=== PATIENT | female | born 1990 | race Caucasian/White ===

== ENCOUNTER 2021-11-17 19:09 | Emergency (ER) | payer OTHER ==
[2021-11-17 19:42] VITALS: BP 108/69; PULSE 106; TEMP 97.9; BMI 23.4
[2021-11-17 21:55] LABS: BASO % 1.2 % (0-2.0); EOS % 2.8 % (0-4.5); HEMATOCRIT 39.4 % (32.4-45.2); HEMOGLOBIN 12.6 GM/dL (10.7-15.3); LYMPH % 34.6 % (8-40); MCH 28.6 pg (25.7-33.7); MEAN CELL VOLUME 89.2 fl (80-96); MEAN PLT VOLUME 9.7 fl (7.5-11.1); MONO % 9.2 % (3.8-10.2); NEUT % 52.2 % (42.8-82.8); PH,URINE 6.5 (5.0-8.0); PLATELET COUNT 292 10^3/uL (134-434); RBC 4.42 M/mm3 (3.60-5.2); RDW 12.9 % (11.6-15.6); URINE APPEARANCE Error; URINE BILIRUBIN NEGATIVE (NEGATIVE); URINE COLOR YELLOW; URINE GLUCOSE (UA) NEGATIVE (NEGATIVE); URINE KETONE NEGATIVE (NEGATIVE); URINE LEUK ESTERASE NEGATIVE (NEGATIVE); URINE NITRITE NEGATIVE (NEGATIVE); URINE PROTEIN NEGATIVE (NEGATIVE); URINE UROBILINOGEN 0.2 mg/dL (0.2-1.0); WHITE BLOOD COUNT 7.6 K/mm3 (4.0-10.0)
[2021-11-17 22:03] LABS: HCG,QUALITATIVE URINE Negative
[2021-11-17 22:15] LABS: CHLORIDE 105 mmol/L (98-107); SODIUM 139 mmol/L (136-145)
[2021-11-17 22:17] LABS: ANION GAP 6 MMOL/L (8-16); BLOOD UREA NITROGEN 11.9 mg/dL (7-18); CALCIUM 9.4 mg/dL (8.5-10.1); CO2 28 mmol/L (21-32); GLUCOSE,RANDOM 94 mg/dL (74-106); MAGNESIUM 2.2 mg/dL (1.8-2.4)
[2021-11-17 22:18] LABS: ALBUMIN 4.3 g/dl (3.4-5.0)
[2021-11-17 22:20] LABS: CREATININE 0.8 mg/dL (0.55-1.3); SGOT/AST 25 U/L (15-37); SGPT/ALT 17 U/L (13-61)
[2021-11-17 22:22] LABS: BILIRUBIN,TOTAL 0.4 mg/dL (0.2-1)
[2021-11-17 22:23] LABS: ALK PHOS 68 U/L (45-117)
[2021-11-17 23:48] LABS: INR 1.01 (0.83-1.09); PROTHROMBIN TIME (PATIENT) 11.6 SEC (9.7-13.0)
[2021-11-17 23:51] LABS: ACTIVATED PTT 32.6 SECONDS (25.2-36.5)
== END 2021-11-18 00:22 | disposition home or self-care (01) ==
LOC: JER 19:09
DX: R07.82 Intercostal pain (principal)
CPT/HCPCS: 36415; 71046-TC-FY; 80053; 81003; 82550; 82553; 83735; 84484; 84703; 85025; 85379; 85610; 85730; 93005; 93010; 99284-25; C9803; U0003; U0005

== ENCOUNTER 2021-11-25 13:28 | Emergency (ER) | payer OTHER ==
[2021-11-25 13:37] VITALS: BP 117/79; TEMP 98; BMI 23.4
[2021-11-25 16:01] LABS: BASO % 1.1 % (0-2.0); EOS % 1.7 % (0-4.5); HEMATOCRIT 38.6 % (32.4-45.2); HEMOGLOBIN 12.7 GM/dL (10.7-15.3); LYMPH % 27.6 % (8-40); MCH 29.1 pg (25.7-33.7); MCHC 32.9 g/dl (32.0-36.0); MEAN CELL VOLUME 88.3 fl (80-96); MEAN PLT VOLUME 9.7 fl (7.5-11.1); MONO % 7.1 % (3.8-10.2); NEUT % 62.5 % (42.8-82.8); PLATELET COUNT 274 10^3/uL (134-434); RBC 4.37 M/mm3 (3.60-5.2); RDW 12.9 % (11.6-15.6)
[2021-11-25 16:44] LABS: CALCIUM 9.5 mg/dL (8.5-10.1)
[2021-11-25 16:45] LABS: ALBUMIN 4.2 g/dl (3.4-5.0); BLOOD UREA NITROGEN 12.7 mg/dL (7-18)
[2021-11-25 16:48] LABS: CREATININE 0.8 mg/dL (0.55-1.3)
[2021-11-25 16:50] LABS: BILIRUBIN,TOTAL 0.2 mg/dL (0.2-1)
[2021-11-25 17:21] VITALS: PULSE 84
== END 2021-11-25 16:35 | disposition home or self-care (01) ==
LOC: JER 13:28
DX: R07.9 Chest pain, unspecified (principal)
CPT/HCPCS: 36415; 71046-TC-FY; 80053; 82550; 84484; 84703; 85025; 85379; 93005; 93010; 99285-25